=== PATIENT | female | born 1975 | race Caucasian/White ===

== ENCOUNTER 2017-06-30 16:03 | Emergency (ER) | payer OTHER ==
[2017-06-30 18:41] LABS: ABSOLUTE LYMPHOCYTES (AUTO) 2.3 10^3/uL (0.5-4.7); ABSOLUTE MONOCYTES (AUTO) 0.3 10^3/uL (0.1-1.4); ABSOLUTE NEUT (AUTO) 3.1 10^3/uL (1.7-8.2); BASOPHILS % (AUTO) 0.5 % (0-2); EOSINOPHILS % (AUTO) 0.8 % (0-6); HEMATOCRIT 40.1 % (36.0-47.0); HEMOGLOBIN 13.7 g/dL (12.0-15.5); LYMPHOCYTES % (AUTO) 38.8 % (13-45); MEAN CORPUSCULAR HEMOGLOBIN 30.4 pg (27.0-33.4); MEAN CORPUSCULAR HGB CONC 34.1 g/dL (32.0-36.0); MEAN CORPUSCULAR VOLUME 89 fl (80-97); MONOCYTES % (AUTO) 5.8 % (3-13); PLATELET COUNT 193 10^3/uL (150-450); RED CELL DISTRIBUTION WIDTH 12.7 % (11.5-14.0); SEGMENTED NEUTROPHILS % (AUTO) 54.1 % (42-78); TOTAL CELLS COUNTED % (AUTO) 100 %; WHITE BLOOD COUNT 5.8 10^3/uL (4.0-10.5)
[2017-06-30 18:56] LABS: ALANINE AMINOTRANSFERASE 37 U/L (9-52); ALBUMIN 4.5 g/dL (3.5-5.0); ALKALINE PHOSPHATASE 44 U/L (38-126); ANION GAP 10 (5-19); ASPARTATE AMINO TRANSFERASE 25 U/L (14-36); BILIRUBIN,DIRECT 0.4 mg/dL (0.0-0.4); BILIRUBIN,TOTAL 0.4 mg/dL (0.2-1.3); BLOOD UREA NITROGEN 10 mg/dL (7-20); CALCIUM 9.8 mg/dL (8.4-10.2); CARBON DIOXIDE 26 mmol/L (22-30); CHLORIDE 106 mmol/L (98-107); GLUCOSE 127 mg/dL (75-110); LIPASE 143.2 U/L (23-300); POTASSIUM 3.7 mmol/L (3.6-5.0); SODIUM 142.2 mmol/L (137-145); TOTAL PROTEIN 7.8 g/dL (6.3-8.2)
[2017-06-30 19:08] VITALS: BP 123/73
--- NOTE | 2017-06-30 19:14 | ER Document Report ---
ED General - General Chief Complaint: Abdominal Pain Stated Complaint: ABDOMINAL PAIN Time Seen by Provider: 06/30/17 18:01 Mode of Arrival: Ambulatory Information source: Patient Notes: 42-year-old female presents with complaints of left upper quadrant abdominal pain of 3 day duration. Patient notes it hurts with movement and also improves with movement. Patient denies any fevers chills nausea vomiting or diarrhea. Patient has had mono in the past, patient has no history of pancreatitis, patient does not drink, she denies any gastric reflux symptoms. Patient notes no change with eating or drinking TRAVEL OUTSIDE OF THE [place] IN LAST 30 DAYS: No - HPI Onset: Other Onset/Duration: Persistent Quality of pain: Achy Severity: Mild Pain Level: 1 Associated symptoms: Other Exacerbated by: Movement Relieved by: Other Similar symptoms previously: No Recently seen / treated by doctor: No - Related Data Allergies/Adverse Reactions: Sulfa (Sulfonamide Antibiotics) Allergy (Severe, Verified 01/17/12 08:58) Hives Past Medical History - Social History Smoking Status: Never Smoker Cigarette use (# per day): No Chew tobacco use (# tins/day): No Smoking Education Provided: No Frequency of alcohol use: None Drug Abuse: None Family History: Reviewed & Not Pertinent Patient has suicidal ideation: No Patient has homicidal ideation: No - Past Medical History Cardiac Medical History: Denies: Hx Pulmonary Embolism Pulmonary Medical History: Reports: Hx Asthma - none since age 21/sports induced Denies: Hx Sleep Apnea, Hx Tuberculosis Neurological Medical History: Reports: Hx Migraine. Denies: Hx Seizures Renal/ Medical History: Denies: Hx Peritoneal Dialysis GI Medical History: Reports: Hx Gastroesophageal Reflux Disease. Denies: Hx Hiatal Hernia, Hx Ulcer Musculoskeltal Medical History: Denies Hx Fibromyalgia Psychiatric Medical History: Reports: Hx Post Traumatic Stress Disorder - minor 2005 post head injury Denies: Hx Bipolar Disorder, Hx Depression, Hx Schizophrenia Traumatic Medical History: Reports: Hx Fractures - fingers Infectious Medical History: Denies: Hx HIV Past Surgical History: Reports: Hx Section - 2. Denies: Hx Hysterectomy, Hx Pacemaker - Immunizations Hx Diphtheria, Pertussis, Tetanus Vaccination: Yes Review of Systems - Review of Systems Notes: REVIEW OF SYSTEMS: CONSTITUTIONAL : Denies fever, chills, or sweats. Denies recent illness. EENT: Denies eye, ear, throat, or mouth pain or symptoms. Denies nasal or sinus congestion or discharge. Denies throat, tongue, or mouth swelling or difficulty swallowing. CARDIOVASCULAR: Denies chest pain. Denies palpitations or racing or irregular heart beat. Denies ankle edema. RESPIRATORY: Denies cough, cold, or chest congestion. Denies shortness of breath, difficulty breathing, or wheezing. GASTROINTESTINAL: admits to left upper quadrant pain GENITOURINARY: Denies difficulty urinating, painful urination, burning, frequency, blood in urine, or discharge. FEMALE GENITOURINARY: Denies vaginal bleeding, heavy or abnormal periods, irregular periods. Denies vaginal discharge or odor. MUSCULOSKELETAL: Denies back or neck pain or stiffness. Denies joint pain or swelling. SKIN: Denies rash, lesions or sores. HEMATOLOGIC : Denies easy bruising or bleeding. LYMPHATIC: Denies swollen, enlarged glands. NEUROLOGICAL: Denies confusion or altered mental status. Denies passing out or loss of consciousness. Denies dizziness or lightheadedness. Denies headache. Denies weakness or paralysis or loss of use of either side. Denies problems with gait or speech. Denies sensory loss, numbness, or tingling. Denies seizures. PSYCHIATRIC: Denies anxiety or stress. Denies depression, suicidal ideation, or homicidal ideation. ALL OTHER SYSTEMS REVIEWED AND NEGATIVE. PHYSICAL EXAMINATION: GENERAL: Well-appearing, well-nourished and in no acute distress. HEAD: Atraumatic, normocephalic. EYES: Pupils equal round and reactive to light, extraocular movements intact, conjunctiva are normal. ENT: Nares patent, oropharynx clear without exudates. Moist mucous membranes. NECK: Normal range of motion, supple without lymphadenopathy LUNGS: Breath sounds clear to auscultation bilaterally and equal. No wheezes rales or rhonchi. HEART: Regular rate and rhythm without murmurs ABDOMEN: Soft, minimal tenderness in the left upper wuadrant, no tenderness otherwise, . Female : deferred Musculoskeletal: Normal range of motion, no pitting or edema. No cyanosis. NEUROLOGICAL: Cranial nerves grossly intact. Normal speech, normal gait. Normal sensory, motor exams PSYCH: Normal mood, normal affect. SKIN: Warm, Dry, normal turgor, no rashes or lesions noted. Dictation was performed using [employer] recognition software Physical Exam - Vital signs Vitals: Temp Pulse Resp BP Pulse Ox 98.4 F 79 20 123/73 98 06/30/17 19:07 06/30/17 19:07 06/30/17 19:07 06/30/17 19:07 06/30/17 19:07 Course - Re-evaluation Re-evalutation: 06/30/17 19:52 Patient has no urinary complaints denies any fevers or chills has no nausea or vomiting and is very benign on exam, lab work noted no significant abnormality, I believe this patient's symptoms are secondary to musculoskeletal in the otherwise looks well. I will discharge home with extremely close follow-up we had long discussion regarding abdominal pain patient follow-up and return precautions After performing a Medical Screening Examination, I estimate there is LOW risk for ACUTE APPENDICITIS, BOWEL OBSTRUCTION, ACUTE CHOLECYSTITIS, PERFORATED DIVERTICULITIS, INCARCERATED HERNIA, PANCREATITIS, PELVIC INFLAMMATORY DISEASE, PERFORATED ULCER, ECTOPIC , or TUBO-OVARIAN ABSCESS, thus I consider the discharge disposition reasonable. Also, there is no evidence or peritonitis , sepsis, or toxicity. I have reevaluated this patient multiple times and no significant life threatening changes are noted. The patient and I have discussed the diagnosis and risks, and we agree with discharging home with close follow-up with the understanding that symptoms and presentations can change. We also discussed returning to the Emergency Department immediately if new or worsening symptoms occur. We have discussed the symptoms which are most concerning (e.g., bloody stool, fever, changing or worsening pain, vomiting) that necessitate immediate return. - Vital Signs Vital signs: Temp Pulse Resp BP Pulse Ox 98.4 F 79 20 123/73 98 06/30/17 19:07 06/30/17 19:07 06/30/17 19:07 06/30/17 19:07 06/30/17 19:07 - Laboratory Result Diagrams: 06/30/17 18:25 06/30/17 18:25 Laboratory results interpreted by me: 06/30/17 18:25 Glucose 127 H Discharge - Discharge Clinical Impression: Abdominal wall pain Condition: Stable Disposition: HOME, SELF-CARE Instructions: Abdominal Pain ([facility]) Additional Instructions: Follow up with your physician tomorrow for further care or return to the ED IMMEDIATELY if symptoms worsen or new concerns occur. If you cannot afford to follow up with your primary care physician a list of low cost clinics have been provided at the end of your discharge papers as well. Prescriptions: Hydrocodone/Acetaminophen [[place] 5-325 mg Tablet] 1 tab PO Q6 #10 tablet
== END 2017-06-30 19:30 | disposition home or self-care (01) ==
LOC: ER 16:03
DX: R10.12 Left upper quadrant pain (principal); Z88.2 Allergy status to sulfonamides
CPT/HCPCS: 36415; 80053; 83690; 84703; 85025; 99284

== ENCOUNTER 2017-07-03 08:44 | Emergency (ER) | payer OTHER ==
[2017-07-03] MEDS ORDERED: VALACYCLOVIR HCL 500 MG TABLET PO ONE (09:41)
[2017-07-03] MEDS ORDERED: HYDROCODONE/ACETAMINOPHEN 7.5-325 MG TABLET PO ONE (09:41)
[2017-07-03] MEDS ORDERED: ONDANSETRON 4 MG TAB.RAPDIS PO ONE (09:41)
--- NOTE | 2017-07-03 09:44 | ER Document Report ---
HPI - HPI Patient complains to provider of: Left flank pain Onset: Other - 5 days Onset/Duration: Worse Quality of pain: Burning, Sharp Pain Level: 5 Context: Patient presents complaining of left flank pain that radiates around her abdomen for the past 5 days. Patient states she was here recently for this complaint and had labs performed. Patient does report some nausea but denies any vomiting or diarrhea. Patient denies any fever, urinary symptoms, vaginal bleeding or discharge. Patient states pain is worse with movement. Patient noticed a rash that starts to develop yesterday. Associated Symptoms: Other - Left flank pain. denies: Chest pain, Fever Exacerbated by: Movement Relieved by: Denies Similar symptoms previously: No Recently seen / treated by doctor: Yes - ROS ROS below otherwise negative: Yes Systems Reviewed and Negative: Yes All other systems reviewed and negative - CONSTITUTIONAL Constitutional: DENIES: Fever, Chills - RESPIRATORY Respiratory: DENIES: Coughing - GASTROINTESTINAL Gastrointestinal: REPORTS: Abdominal Pain, Nausea. DENIES: Patient vomiting - URINARY Urinary: DENIES: Dysuria, Urgency, Frequency - MUSCULOSKELETAL Musculoskeletal: REPORTS: Back Pain. DENIES: Extremity pain - DERM Skin Color: Normal, [place] Skin Problems: Rash Past Medical History - General Information source: Patient - Social History Smoking Status: Never Smoker Chew tobacco use (# tins/day): No Frequency of alcohol use: None Drug Abuse: None Occupation: interior design principal Lives with: Spouse/Significant other Family History: Reviewed & Not Pertinent Patient has suicidal ideation: No Patient has homicidal ideation: No - Past Medical History Cardiac Medical History: Denies: Hx Pulmonary Embolism Pulmonary Medical History: Reports: Hx Asthma - none since age 21/sports induced Denies: Hx Sleep Apnea, Hx Tuberculosis Neurological Medical History: Reports: Hx Migraine. Denies: Hx Seizures Renal/ Medical History: Denies: Hx Peritoneal Dialysis GI Medical History: Reports: Hx Gastroesophageal Reflux Disease. Denies: Hx Hiatal Hernia, Hx Ulcer Musculoskeltal Medical History: Denies Hx Fibromyalgia Psychiatric Medical History: Reports: Hx Post Traumatic Stress Disorder - minor 2005 post head injury Denies: Hx Bipolar Disorder, Hx Depression, Hx Schizophrenia Traumatic Medical History: Reports: Hx Fractures - fingers Infectious Medical History: Denies: Hx HIV Past Surgical History: Reports: Hx Section - 2. Denies: Hx Hysterectomy, Hx Pacemaker - Immunizations Hx Diphtheria, Pertussis, Tetanus Vaccination: Yes Vertical Provider Document - CONSTITUTIONAL Agree With Documented VS: Yes Exam Limitations: No Limitations General Appearance: WD/WN, No Apparent Distress - INFECTION CONTROL TRAVEL OUTSIDE OF THE [place] IN LAST 30 DAYS: No - HEENT HEENT: Atraumatic, Normocephalic - NECK Neck: Normal Inspection, Supple - RESPIRATORY Respiratory: Breath Sounds Normal, No Respiratory Distress O2 Sat by Pulse Oximetry: 97 - CARDIOVASCULAR Cardiovascular: Regular Rate, Regular Rhythm, No Murmur - GI/ABDOMEN Gastrointestinal: Abdomen Soft, Abdomen Tender - Left side of abdomen tender with overlying vesicular rash - BACK Back: Abnormal Inspection - Vesicular erythematous rash the left flank area that wraps around to left side of abdomen - MUSCULOSKELETAL/EXTREMETIES Musculoskeletal/Extremeties: DANY ERICKSON - NEURO Level of Consciousness: Awake, Alert, Appropriate Motor/Sensory: No Motor Deficit - DERM Integumentary: Warm, Dry, Rash - Erythematous vesicular painful rash to left side of trunk Course - Re-evaluation Re-evalutation: 07/03/17 Patient presents with vesicular rash consistent with herpes zoster. Patient with explanation for her pain symptoms, patient agrees with plan to defer any additional diagnostic workup at this time. Will treat her pain symptoms and add antiviral medication. - Vital Signs Vital signs: Temp Pulse Resp BP Pulse Ox 98.1 F 75 20 118/64 97 07/03/17 08:46 07/03/17 08:46 07/03/17 08:46 07/03/17 08:46 07/03/17 08:46 - Laboratory Laboratory results interpreted by me: 07/03/17 18:24 Reviewed results from previous ER visit Discharge - Discharge Clinical Impression: Shingles Qualifiers: Herpes zoster complications: without complications Qualified Code(s): B02.9 - Zoster without complications Condition: Stable Disposition: HOME, SELF-CARE Instructions: Antinausea Medication ([facility]), Oral Narcotic Medication ([facility]), Shingles ([facility]) Additional Instructions: Return immediately for any new or worsening symptoms Followup with your primary care provider, call tomorrow to make a followup appointment Prescriptions: Hydrocodone/Acetaminophen [[place] 7.5-325 mg Tablet] 1 tab PO Q6 PRN #20 tablet PRN Reason: Lidocaine [Lidoderm 5% (700 mg) Transdermal Patch] 1 patch TP DAILY #15 adh..patch Ondansetron HCl [Zofran 4 mg Tablet] 1 - 2 tab PO Q6 PRN #15 tablet PRN Reason: Valacyclovir HCl [Valacyclovir] 1,000 mg PO TID #21 tablet Forms: Return to Work Referrals: SUZIE JEFFRIES MD [Primary Care Provider] - Follow up as needed
[2017-07-03] MEDS ORDERED: LIDOCAINE 5% (700 MG) TRANSDERMAL ADH..PATCH TP ONE (09:48)
[2017-07-03 10:14] VITALS: BP 120/70
== END 2017-07-03 10:37 | disposition home or self-care (01) ==
LOC: ER 08:44
DX: B02.9 Zoster without complications (principal); R10.9 Unspecified abdominal pain; R11.0 Nausea; R21 Rash and other nonspecific skin eruption
CPT/HCPCS: 99283; S0119

== ENCOUNTER 2017-08-12 01:00 | Emergency (ER) | payer OTHER ==
[2017-08-12] MEDS ORDERED: ONDANSETRON HCL INJ/PF 4 MG/2 ML SDV IV ONE (01:54)
[2017-08-12] MEDS ORDERED: KETOROLAC TROMETHAMINE INJ/PF 30 MG/1 ML SDV IV ONE (01:54)
[2017-08-12] MEDS ORDERED: NORMAL SALINE 1000 ML 1,000 ML IV ONE (01:56)
--- NOTE | 2017-08-12 02:02 | ER Document Report ---
ED General - General Chief Complaint: Abdominal Pain Stated Complaint: ABDOMINAL PAIN Time Seen by Provider: 08/12/17 01:08 Notes: Patient is a 42-year-old female with a past medical history of migraine headaches who presents with acute onset of right upper quadrant abdominal pain with associated nausea and vomiting that started approximately 1 hour prior to arrival. Patient states that she ate ice cream approximately 2 hours before going to bed and then woke up abruptly with this pain. She describes it as a severe, stabbing, constant pain to her upper right abdomen. She notes that she had multiple episodes of vomiting prior to arrival with associated nausea. Nothing improves or worsens her pain. She denies any history of similar symptoms in the past. She denies any diarrhea or constipation. No chest pain or shortness of breath. She notes that her pain has somewhat improved since onset although it is not completely resolved. TRAVEL OUTSIDE OF THE [place] IN LAST 30 DAYS: No - Related Data Allergies/Adverse Reactions: Sulfa (Sulfonamide Antibiotics) Allergy (Severe, Verified 07/03/17 09:27) Hives Past Medical History - General Information source: Patient - Social History Smoking Status: Never Smoker Frequency of alcohol use: None Drug Abuse: None Lives with: Spouse/Significant other Family History: Reviewed & Not Pertinent - Past Medical History Cardiac Medical History: Denies: Hx Pulmonary Embolism Pulmonary Medical History: Reports: Hx Asthma - none since age 21/sports induced Denies: Hx Sleep Apnea, Hx Tuberculosis Neurological Medical History: Reports: Hx Migraine. Denies: Hx Seizures Renal/ Medical History: Denies: Hx Peritoneal Dialysis GI Medical History: Reports: Hx Gastroesophageal Reflux Disease. Denies: Hx Hiatal Hernia, Hx Ulcer Musculoskeltal Medical History: Denies Hx Fibromyalgia Psychiatric Medical History: Reports: Hx Post Traumatic Stress Disorder - minor 2005 post head injury Denies: Hx Bipolar Disorder, Hx Depression, Hx Schizophrenia Traumatic Medical History: Reports: Hx Fractures - fingers Infectious Medical History: Denies: Hx HIV Past Surgical History: Reports: Hx Section - 2. Denies: Hx Hysterectomy, Hx Pacemaker - Immunizations Hx Diphtheria, Pertussis, Tetanus Vaccination: Yes Review of Systems - Review of Systems Notes: Constitutional: Negative for fever. HENT: Negative for sore throat. Eyes: Negative for visual changes. Cardiovascular: Negative for chest pain. Respiratory: Negative for shortness of breath. Gastrointestinal: Positive for abdominal pain and vomiting Genitourinary: Negative for dysuria. Musculoskeletal: Negative for back pain. Skin: Negative for rash. Neurological: Negative for headaches, weakness or numbness. 10 point ROS negative except as marked above and in HPI. Physical Exam - Vital signs Vitals: Temp Pulse Resp BP Pulse Ox 98.1 F 69 18 111/71 98 08/12/17 01:04 08/12/17 01:04 08/12/17 01:04 08/12/17 01:04 08/12/17 01:04 Interpretation: Normal Notes: PHYSICAL EXAMINATION: GENERAL: Well-appearing, well-nourished and in no acute distress. HEAD: Atraumatic, normocephalic. EYES: Pupils equal round and reactive to light, extraocular movements intact, sclera anicteric, conjunctiva are normal. ENT: nares patent, oropharynx clear without exudates. Moist mucous membranes. NECK: Normal range of motion, supple without lymphadenopathy LUNGS: Breath sounds clear to auscultation bilaterally and equal. No wheezes rales or rhonchi. HEART: Regular rate and rhythm without murmurs ABDOMEN: Soft, mild tenderness to the right upper quadrant without a Quiñones sign , no other localized areas of tenderness, normoactive bowel sounds. No guarding , no rebound. No masses appreciated. EXTREMITIES: Normal range of motion, no pitting or edema. No cyanosis. NEUROLOGICAL: No focal neurological deficits. Moves all extremities spontaneously and on command. PSYCH: Normal mood, normal affect. SKIN: Warm, Dry, normal turgor, no rashes or lesions noted. Course - Re-evaluation Re-evalutation: 08/12/17 01:57 Patient presents clinical history and exam most consistent with symptomatic cholelithiasis. Vitals at time of arrival and on multiple reassessments remain non-concerning. Laboratories do not demonstrate a significant leukocytosis, LFT derangements, elevated bilirubin, alkaline phosphatase, or an elevated lipase. A right upper quadrant ultrasound does not demonstrate evidence of acute cholecystitis. Patient is able to tolerate oral intake. At this time will discharge with return precautions and follow-up recommendations. Verbal discharge instructions given a the bedside and opportunity for questions given. Medication warnings reviewed. Patient is in agreement with this plan and has verbalized understanding of return precautions and the need for primary care follow-up in the next 24-72 hours. - Vital Signs Vital signs: Temp Pulse Resp BP Pulse Ox 98.1 F 69 18 111/71 98 08/12/17 01:04 08/12/17 01:04 08/12/17 01:04 08/12/17 01:04 08/12/17 01:04 - Laboratory Result Diagrams: 08/12/17 02:09 08/12/17 02:58 Laboratory results interpreted by me: 08/12/17 08/12/17 02:09 02:58 Sodium 145.6 H Chloride 114 H Total Protein 6.2 L Urine Urobilinogen 2.0 H Discharge - Discharge Clinical Impression: Symptomatic cholelithiasis Nausea and vomiting Qualifiers: Vomiting type: unspecified Vomiting Intractability: non-intractable Qualified Code(s): R11.2 - Nausea with vomiting, unspecified Condition: Good Disposition: HOME, SELF-CARE Additional Instructions: You have gallstones that are causing your symptoms. Be sure to avoid fat containing foods until you follow-up with a surgeon to have the gallbladder removed as eating these foods will trigger your pain. Please return to the emergency department if you develop a fever greater than 100.4F, persistent vomiting, worsening of your pain, or any other symptoms that are worrisome to you. Referrals: SUZIE JEFFRIES MD [Primary Care Provider] - Follow up as needed KARLA RAUSCH MD [ACTIVE STAFF] - 08/14/17
[2017-08-12 02:22] LABS: ABSOLUTE BASOPHILS # (AUTO) 0.1 10^3/uL (0.0-0.2); ABSOLUTE EOSINOPHILS # (AUTO) 0.1 10^3/uL (0.0-0.6); ABSOLUTE MONOCYTES (AUTO) 0.6 10^3/uL (0.1-1.4); ABSOLUTE NEUT (AUTO) 3.4 10^3/uL (1.7-8.2); BASOPHILS % (AUTO) 0.9 % (0-2); EOSINOPHILS % (AUTO) 2.4 % (0-6); HEMATOCRIT 37.3 % (36.0-47.0); HEMOGLOBIN 12.9 g/dL (12.0-15.5); LYMPHOCYTES % (AUTO) 32.1 % (13-45); MEAN CORPUSCULAR HEMOGLOBIN 30.9 pg (27.0-33.4); MEAN CORPUSCULAR HGB CONC 34.5 g/dL (32.0-36.0); MEAN CORPUSCULAR VOLUME 89 fl (80-97); MONOCYTES % (AUTO) 8.9 % (3-13); PLATELET COUNT 207 10^3/uL (150-450); RED BLOOD COUNT 4.18 10^6/uL (3.72-5.28); RED CELL DISTRIBUTION WIDTH 13.2 % (11.5-14.0); SEGMENTED NEUTROPHILS % (AUTO) 55.7 % (42-78); TOTAL CELLS COUNTED % (AUTO) 100 %; WHITE BLOOD COUNT 6.2 10^3/uL (4.0-10.5)
[2017-08-12 02:24] LABS: APPEARANCE,URINE SLIGHTLY-CLOUDY; BILIRUBIN,URINE NEGATIVE (NEGATIVE); COLOR,URINE YELLOW; GLUCOSE, URINE NEGATIVE (NEGATIVE); KETONES,URINE NEGATIVE (NEGATIVE); LEUKOCYTE ESTERASE,URINE NEGATIVE (NEGATIVE); NITRITE,URINE NEGATIVE (NEGATIVE); PROTEIN,URINE NEGATIVE (NEGATIVE); URINE SPECIFIC GRAVITY 1.018
--- NOTE | 2017-08-12 03:00 | RADIOLOGY REPORT (SQ) ---
EXAM DESCRIPTION: U/S ABDOMEN LIMITED W/O DOP CLINICAL HISTORY: ruq pain, vomiting COMPARISON: None. TECHNIQUE: Real-time sonographic images of the right upper abdomen were obtained using a curved multihertz transducer. FINDINGS: Pancreas: The visualized portions of the pancreas are unremarkable. Vascular: The visualized portions of the aorta and IVC are unremarkable. Liver: The liver has normal contour and echogenicity. Hepatopedal flow in the portal vein. The common bile duct measures 0.3 cm. Gallbladder: Normal gallbladder wall thickness. Mobile echogenic structures within the gallbladder lumen compatible with gallstones. No pericholecystic fluid identified. Right Kidney: The right kidney measures 11.6 cm in length. No hydronephrosis, solid renal mass, or shadowing calculi. IMPRESSION: 1. Cholelithiasis without other sonographic evidence of acute cholecystitis.
[2017-08-12 03:13] LABS: ALANINE AMINOTRANSFERASE 37 U/L (9-52); ALBUMIN 3.5 g/dL (3.5-5.0); ALKALINE PHOSPHATASE 44 U/L (38-126); ANION GAP 8 (5-19); ASPARTATE AMINO TRANSFERASE 24 U/L (14-36); BILIRUBIN,DIRECT 0.3 mg/dL (0.0-0.4); BILIRUBIN,TOTAL 0.3 mg/dL (0.2-1.3); BLOOD UREA NITROGEN 13 mg/dL (7-20); CALCIUM 8.9 mg/dL (8.4-10.2); CARBON DIOXIDE 24 mmol/L (22-30); CHLORIDE 114 mmol/L (98-107); GLUCOSE 97 mg/dL (75-110); LIPASE 201.1 U/L (23-300); POTASSIUM 4.2 mmol/L (3.6-5.0); SODIUM 145.6 mmol/L (137-145); TOTAL PROTEIN 6.2 g/dL (6.3-8.2)
[2017-08-12 03:50] VITALS: BP 106/61
== END 2017-08-12 03:50 | disposition home or self-care (01) ==
LOC: ER 01:00
DX: K80.20 Calculus of gallbladder without cholecystitis without obstruction (principal); R11.2 Nausea with vomiting, unspecified; R10.11 Right upper quadrant pain; D72.829 Elevated white blood cell count, unspecified; J45.909 Unspecified asthma, uncomplicated; Z88.2 Allergy status to sulfonamides; Z87.19 Personal history of other diseases of the digestive system
CPT/HCPCS: 99284; 96361; 96374; 96375; 36415; 83690; 85025; 81025; 80053; 81001; 76705; J1885; J2405; J7030

== ENCOUNTER 2017-09-06 08:34 | Day surgery (SDC) | payer OTHER ==
[2017-08-30 09:50] LABS: HEMATOCRIT 42.8 % (36.0-47.0); HEMOGLOBIN 14.5 g/dL (12.0-15.5); MEAN CORPUSCULAR HEMOGLOBIN 30.3 pg (27.0-33.4); MEAN CORPUSCULAR HGB CONC 33.8 g/dL (32.0-36.0); MEAN CORPUSCULAR VOLUME 90 fl (80-97); PLATELET COUNT 175 10^3/uL (150-450); RED BLOOD COUNT 4.77 10^6/uL (3.72-5.28); RED CELL DISTRIBUTION WIDTH 12.9 % (11.5-14.0); WHITE BLOOD COUNT 5.3 10^3/uL (4.0-10.5)
[2017-08-30 10:17] LABS: ALANINE AMINOTRANSFERASE 28 U/L (9-52); ALBUMIN 4.7 g/dL (3.5-5.0); ALKALINE PHOSPHATASE 44 U/L (38-126); AMYLASE 72 U/L (30-110); ANION GAP 13 (5-19); ASPARTATE AMINO TRANSFERASE 21 U/L (14-36); BILIRUBIN,DIRECT 0.1 mg/dL (0.0-0.4); BILIRUBIN,TOTAL 0.4 mg/dL (0.2-1.3); BLOOD UREA NITROGEN 12 mg/dL (7-20); CALCIUM 9.8 mg/dL (8.4-10.2); CARBON DIOXIDE 27 mmol/L (22-30); CHLORIDE 105 mmol/L (98-107); GLUCOSE 90 mg/dL (75-110); POTASSIUM 4.5 mmol/L (3.6-5.0); SODIUM 144.9 mmol/L (137-145); TOTAL PROTEIN 7.8 g/dL (6.3-8.2)
[2017-09-06] MEDS: BUPIVACAINE HCL 0.25 % INJ/PF (2.5 MG/1 ML) 30 ML VIAL ONE ×2 (08:03→09:37)
[~2017-09-06 08:34] MED LIST: ACETAMINOPHEN 100 ML IV ONE; ACETAMINOPHEN 325 MG TABLET PO PRN; CEFAZOLIN 1 GM/D5W RTU 1 GM/50 ML RTUPB IV PRN; FENTANYL CITRATE INJ/PF 250 MCG/5 ML AMPULE ONE; LACTATED RINGERS 1000 ML IV PRN; LIDOCAINE 0.5% INJ-PF (5 MG/ML) 50 ML SDV SUBCUT PRN; MIDAZOLAM 2 MG/2 ML INJ ONE; PROPOFOL INJ 200 MG/20 ML VIAL IV ONE
[2017-09-06] MEDS ORDERED: MEPERIDINE HCL/PF INJ 25 MG/1 ML DISP.SYRIN IV PRN (09:51)
[2017-09-06] MEDS ORDERED: FENTANYL CITRATE INJ/PF 100 MCG/2 ML AMPUL IV PRN ×3 (09:51)
[2017-09-06] MEDS ORDERED: MORPHINE SULFATE 10 MG/ML INJ IV PRN (09:51)
[2017-09-06] MEDS ORDERED: THROMBIN (BOVINE) 5000 UNIT EPITAXIS KIT ONE (10:24)
--- NOTE | 2017-09-06 10:57 | Discharge Summary ---
Discharge Summary (SDC) - Discharge Final Diagnosis: cholelithiasis with right lobe liver mass Date of Surgery: 09/06/17 Discharge Date: 09/06/17 Condition: Stable Treatment or Instructions: [facility] [address] [place] [id number] Discharge Instructions: Laparoscopic Surgery 1. General Information: a. DO NOT DRIVE a car or operate dangerous machinery for 3-4 days or while taking narcotic pain pills. b. DO NOT consume alcohol, tranquilizers, sleeping medications or any non- prescribed medications for 24 hours unless approved by your doctor or as long as taking narcotic prescription medications. c. DO NOT make important decisions or sign any important papers for the first 24 hours after surgery. d. When discharged home the same day of surgery have a responsible person with you for the first night. 2. Activity Restrictions: 2 weeks a. NO heavy lifting, straining abdominal muscles, bending over a lot, yard work, house work, or sports for [address] NOT drive for 3-4 days. c. It is fine to go for walks, up and down steps, ride in a car. d. Elevate your head when sleeping/resting. 3. Treatment: a. You may shower 48 hours after surgery, no baths or swimming for 2 weeks. Remove band-aids or dressings before shower but leave paper strips (steri-strips ) on the skin to fall off on their own. If still on at postoperative visit they will be removed then. b. Drainage of fluid or blood is not unusual from an incision. If occurs, you can clean with peroxide and cotton ball daily and cover with dry gauze until the wound seals. c. If a lot of bleeding occurs, you can hold pressure with a gauze or cloth over the site for 10 minutes and it will usually stop. If bleeding continues you will need to call for possible evaluation in office or emergency room. d. Empty drain bulb every 24 hours. Record measurement prior to emptying. You may remove drain dressing prior to shower and apply a new clean dressing afterwards. 4. Medications: a. __Toradol_ may be taken for pain as needed, one tablet every 6 hours. b. You should resume all normal medications unless a change is specified by your doctors. 5. Diet: Begin with clear liquids and may progress to your normal diet if not nauseated. No high fat, high protein foods the day of surgery. 6. The following may occur after laparoscopic surgery: a. Shoulder or upper back ache from retained gas that should resolve in 1-2 days b. Soreness and bruising at incision sites will resolve with time. c. Scrotal swelling (labia in women) and bruising is often seen after hernia surgery. d. Sore throat e. Fatigue may last days to weeks. f. Difficulty urinating may occur and may need to come into emergency room for urinary catheter placement. 7. Notify Physician If: a. Worsening or pain not improved with pain medication b. Persistent nausea and vomiting c. Fever above 101 d. Persistent bleeding or swelling at operative site e. Unable to urinate and uncomfortable bladder 6-8 hours after surgery 8..Follow Up Care: a. Schedule a follow up appointment with your doctor for 2 weeks. In the event of any postoperative problems or questions or you may call the office during business hours or the [facility]-Call physician evenings and weekends [facility] I understand the instructions for my postoperative care as described above and a copy has been given to me. Patient/Significant Other Witness Date Prescriptions: Ketorolac Tromethamine [Toradol 10 mg Tablet] 10 mg PO Q6HP PRN #20 tablet PRN Reason: Referrals: SUZIE JEFFRIES MD [Primary Care Provider] - Discharge Diet: Other (Comments) - avoid fatty/greasy foods Discharge Activity: No Lifting Over 10 Pounds, No tub bath, Walk Frequently Report the Following to Your Physician Immediately: Nausea, Vomiting, Fever over 101 Degrees, Unusual Bleeding, Redness, Drainage-Foul Smelling
[2017-09-06] MEDS ORDERED: OXYCODONE-ACETAMINOPHEN 5-325 MG TABLET PO PRN (10:58)
[2017-09-06] MEDS ORDERED: FENTANYL CITRATE INJ/PF 100 MCG/2 ML AMPUL ONE (11:06)
[2017-09-06] MEDS ORDERED: MORPHINE SULFATE 10 MG/ML INJ ONE (11:08)
--- NOTE | 2017-09-06 11:15 | Operative Report ---
Operative Report DATE OF SURGERY: 09/06/17 PREOPERATIVE DIAGNOSIS: 1. Symptomatic cholelithiasis with cholecystitis. 2. History of oral contraceptive use POSTOPERATIVE DIAGNOSIS: Same with right hepatic lobe mass OPERATION: 1. Laparoscopic cholecystectomy. 2. Core biopsy right hepatic lobe, segment 6, mass. 3. Drainage of perihepatic space SURGEON: KARLA RAUSCH 1ST FUND DIRECTOR: TERRIE SOTO ANESTHESIA: GA TISSUE REMOVED OR ALTERED: 1. Gallbladder with contents. 2. core of right hepatic mass COMPLICATIONS: None ESTIMATED BLOOD LOSS: 25 cc INTRAOPERATIVE FINDINGS: See below PROCEDURE: After obtaining informed consent, the patient was taken to the operating room. General Anesthesia was induced; the arms were extended, and the abdomen was exposed, and prepped and draped in a sterile fashion. Instrumentation was set up for laparoscopic cholecystectomy. Surgical plan and surgical timeout were conducted. A vertical incision was made above the umbilicus, and a verres needle was inserted uneventfully into the peritoneal cavity. Pneumoperitoneum was established. The verres needle was removed and a 5 mm trocar was inserted and a 5 mm flexible laparoscope was inserted. Visualization of the peritoneal cavity confirmed safe uneventful entry. Under direct visualization 3 additional 5 mm ports were established, one in the subxiphoid position and second in the subcostal position. Visualization of the hepatobiliary anatomy revealed no anatomic variations. However the inferior lateral aspect of the right lobe, consistent with segment 6 coming off of the inferior surface was approximately 4 cm mass, vascularity with a nodular surface. The remainder of the liver appeared completely normal. Photographs were taken, and images sent to Dr. Oscar Odom, hepatobiliary specialist in oncology at [facility]. Suggested core biopsy. We elected to proceed with gallbladder removal, then discuss the intraoperative findings with patient's significant other. A grasper was placed on the fundus of the gallbladder and the gallbladder is elevated over the right surface of the liver; a second grasper was used to grasp the infundibulum of the gallbladder. The neck of the gallbladder and junction with the cystic duct was dissected out. The Cystic artery was in its usual location medial and cephalad to the cystic duct. The cystic artery was surrounded with a right angle clamp, clipped twice proximally and divided with laparoscopic scissors. We now opened the triangle of Calot by dividing the peritoneal reflection on both the medial and lateral sides of the cystic duct infundibular junction. The critical view was obtained. We now milked the cystic duct of any possible stones, clipped the cystic duct approximately 2 times once distally and divided with scissors. The gallbladder was now removed from the undersurface of the liver using hook cautery dissection. Graspers were repositioned and the gallbladder was removed uneventfully from the abdominal cavity through the super umbilical port site incision. The specimen was examined, then passed off to pathology for permanent analysis. We returned to the peritoneal cavity check for bleeding, and evidence of bile leak, and there was none. We Confirmed satisfactory placement of clips on cystic duct and cystic artery were secured . We now turned our attention to the right lobe of the liver mass. I broke scrub and discussed the findings with the patient's significant other. I showed him pictures intraoperatively of the incidental mass, and the recommendation by the hepatobiliary specialist to proceed with biopsy. He agreed. We elected to perform a core biopsy using 14-gauge mammotome hand-held spring- loaded device. We took 1 of the 5 mm trochars, truncated it, and approached the biopsy through the shortened trocar. The liver right lobe elevated using a grasper, we introduced the spring-loaded handheld mammotome through the port, and obtained 2 cores, 1 with substantial tissue and the other mostly blood. Specimens were sent for permanent analysis in formalin, as well as fresh saline for immediate interpretation. Bleeding was minimal but persistent. Therefore we achieved hemostasis with 5 cc of thrombin activated, and several pieces of Surgicel. A drain was placed through 1 of the port sites, a 15 [place] large trimmed to the appropriate configuration. The drain was secured to the skin with 2-0 Prolene suture. Reinspection of the bleeding site revealed satisfactory hemostasis. The drain was in good position. We felt the operation was complete. Ports were removed under direct visualization and wounds closed with 3-0 Vicryl benzoin and Steri- Strips. The patient was extubated, and taken to the recovery room in stable condition. Immediately postoperatively we got a call from Dr. Panda Sharma, pathologist, who stated the biopsy was consistent with a benign hepatic lesion; This was discussed with the patient's significant other at the conclusion of the operation. The physician field administrative assistant, Ms. Duran, provided assistance during this case by: Assisting and port insertion, retracting tissue, instillation of local anesthesia and closure of skin incisions.
[2017-09-06] MEDS ORDERED: ONDANSETRON HCL INJ/PF 4 MG/2 ML SDV ONE (12:42)
[2017-09-06] MEDS ORDERED: NEOSTIGMINE METHYLSULFATE 10 MG/10 ML VIAL ONE (12:42)
[2017-09-06] MEDS ORDERED: LIDOCAINE 2% INJ-PF (20 MG/ML) 2 ML AMPUL ONE (12:42)
[2017-09-06] MEDS ORDERED: DEXAMETHASONE SOD PHOSPHATE INJ 4 MG/1 ML VIAL ONE (12:42)
[2017-09-06] MEDS ORDERED: VECURONIUM BROMIDE INJ 10 MG VIAL IV ONE (12:42)
[2017-09-06] MEDS ORDERED: GLYCOPYRROLATE INJ 0.4 MG/2 ML VIAL ONE (12:42)
[2017-09-06] MEDS ORDERED: SUCCINYLCHOLINE CHLORIDE INJ 200 MG/10 ML VIAL ONE (12:42)
[2017-09-06 13:55] VITALS: BP 126/82
== END 2017-09-06 13:45 | disposition home or self-care (01) ==
LOC: OROUT 08:34
PROVIDERS: ATTEND Surgery
PROC: 0FB14ZX Excision of Right Lobe Liver, Percutaneous Endoscopic Approach, Diagnostic (ICD-10-PCS; 2017-09-06)
PROC: 0FT44ZZ Resection of Gallbladder, Percutaneous Endoscopic Approach (ICD-10-PCS; principal; 2017-09-06 07:30)
DX: K80.10 Calculus of gallbladder with chronic cholecystitis without obstruction (principal); K75.81 Nonalcoholic steatohepatitis (NASH); K74.0 Hepatic fibrosis; G43.909 Migraine, unspecified, not intractable, without status migrainosus; Z87.891 Personal history of nicotine dependence; Z79.899 Other long term (current) drug therapy; Z88.8 Allergy status to other drugs, medicaments and biological substances
CPT/HCPCS: 36415; 82150; 85027; 81025; 80076; 80048; 88304 ×2; 88305 ×2; 88313 ×2; 88331; 47562; 47379; J2250; J0690; J1100; J3010 ×2; J3490 ×3; J2270; J0330; J2405; J2704; J0131; 790

== ENCOUNTER → 2017-09-15 | Outpatient (CLI) | payer OTHER ==
[2017-09-15 10:22] LABS: ALANINE AMINOTRANSFERASE 38 U/L (9-52); ALBUMIN 4.4 g/dL (3.5-5.0); ALKALINE PHOSPHATASE 57 U/L (38-126); ASPARTATE AMINO TRANSFERASE 20 U/L (14-36); BILIRUBIN,DIRECT 0.3 mg/dL (0.0-0.4); BILIRUBIN,TOTAL 0.3 mg/dL (0.2-1.3); TOTAL PROTEIN 7.3 g/dL (6.3-8.2)
[2017-09-16 04:38] LABS: HEPATITIS A AB IGM Negative (Negative); HEPATITIS B CORE AB IGM Negative (Negative); HEPATITS B SURFACE ANTIGEN Negative (Negative)
[2017-09-16 11:48] LABS: HEPATITIS C VIRUS ANTIBODY <0.1 s/co ratio (0.0-0.9)
== END ==
LOC: LAB 09:50
PROVIDERS: ATTEND Surgery
DX: R16.0 Hepatomegaly, not elsewhere classified (principal)
CPT/HCPCS: 36415; 80074; 80076; 82105

== ENCOUNTER 2020-05-27 16:20 | Emergency (ER) | payer OTHER ==
[2020-05-27 17:35] VITALS: BP 140/85
[2020-05-27] MEDS ORDERED: METOCLOPRAMIDE HCL INJ/PF 10 MG/2 ML SDV IM ONE (19:29)
[2020-05-27] MEDS ORDERED: KETOROLAC TROMETHAMINE 60 MG/2 ML SDV IM ONE (19:29)
--- NOTE | 2020-05-27 19:56 | ER Document Report ---
HPI - HPI Patient complains to provider of: Headache Time Seen by Provider: 05/27/20 19:25 Pain Level: 2 Context: 45-year-old female past medical history significant for migraines complains of daily migraines for the past 3 days. States she had her monthly injection on Monday. Has been taking Fioricet every day but states she cannot break the cycle. States it feels like a tight band around the top of her head. Denies any nausea, vomiting. No head trauma head injury. No sudden thunderclap. Denies worst headache of her life. States is similar to her previous migraine she just cannot seem to get it to fully go away. Denies any chance of . Associated Symptoms: None Exacerbated by: Denies Relieved by: Denies Similar symptoms previously: Yes - History of migraines Recently seen / treated by doctor: No - ROS Systems Reviewed and Negative: Yes All other systems reviewed and negative - CONSTITUTIONAL Constitutional: DENIES: Fever - EENT EENT: DENIES: Sore Throat - NEURO Neurology: REPORTS: Headache. DENIES: Weakness, Vision blurred, Dizzinesss / Vertigo - REPRODUCTIVE LMP: 2 wks ago Reproductive: DENIES: : - DERM Skin Color: Normal, [place] Skin Problems: None Past Medical History - General Information source: Patient - Social History Smoking Status: Never Smoker Frequency of alcohol use: None Drug Abuse: None Family History: Reviewed & Not Pertinent Patient has homicidal ideation: No - Past Medical History Cardiac Medical History: Denies: Hx Coronary Artery Disease, Hx Heart Attack, Hx Hypertension, Hx Pulmonary Embolism Pulmonary Medical History: Denies: Hx Asthma, Hx Bronchitis, Hx COPD, Hx Pneumonia, Hx Sleep Apnea, Hx Tuberculosis Neurological Medical History: Reports: Hx Migraine. Denies: Hx Cerebrovascular Accident, Hx Seizures Renal/ Medical History: Denies: Hx Peritoneal Dialysis GI Medical History: Reports: Hx Gastroesophageal Reflux Disease. Denies: Hx Hiatal Hernia, Hx Ulcer Musculoskeletal Medical History: Denies Hx Arthritis, Denies Hx Fibromyalgia Psychiatric Medical History: Reports: Hx Post Traumatic Stress Disorder - minor 2005 post head injury Denies: Hx Bipolar Disorder, Hx Depression, Hx Schizophrenia Traumatic Medical History: Reports: Hx Fractures - fingers Infectious Medical History: Denies: Hx HIV Past Surgical History: Reports: Hx Section - 2. Denies: Hx Hysterectom y, Hx Pacemaker - Immunizations Hx Diphtheria, Pertussis, Tetanus Vaccination: Yes Vertical Provider Document - CONSTITUTIONAL Agree With Documented VS: Yes Exam Limitations: No Limitations General Appearance: Mild Distress - INFECTION CONTROL TRAVEL OUTSIDE OF THE [place] IN LAST 30 DAYS: No - HEENT HEENT: Atraumatic, Normal ENT Exam, Normocephalic, PERRLA Notes: Bilateral photophobia - NECK Neck: Normal Inspection, Supple, Thyroid Normal - RESPIRATORY Respiratory: Breath Sounds Normal, No Respiratory Distress, Chest Non-Tender - CARDIOVASCULAR Cardiovascular: Regular Rate, Regular Rhythm, No Murmur - NEURO Level of Consciousness: Awake, Alert, Appropriate Motor/Sensory: No Motor Deficit, No Sensory Deficit - DERM Integumentary: Warm, Dry, No Rash Course - Re-evaluation Re-evalutation: 05/27/20 20:11 Patient is resting comfortably states her headache has resolved. Counseled to continue with her home medications. Outpatient follow-up with her primary care physician as needed. Patient was given strict return to the emergency room guidelines. Return for any new or worsening symptoms. All questions were answered. Patient verbalized understanding and agrees with plan of care. - Vital Signs Vital signs: Temp Pulse Resp BP Pulse Ox 98.7 F 73 18 140/85 H 99 05/27/20 17:34 05/27/20 17:34 05/27/20 17:34 05/27/20 17:34 05/27/20 17:34 - Laboratory Results Critical Laboratory Results Reviewed: No Critical Results - Radiology Results Critical Radiology Results Reviewed: No Critical Results Discharge - Discharge Clinical Impression: Migraine headache without aura Qualifiers: Status migrainosus presence: without status migrainosus Intractability: not intractable Qualified Code(s): G43.009 - Migraine without aura, not intractable, without status migrainosus Condition: Stable Disposition: HOME, SELF-CARE Instructions: Migraine Headache ([facility]) Additional Instructions: You have been seen in the Emergency Department (ED) for a headache. Please continue with your home medications as needed for symptoms, As we have discussed, please follow up with your primary care doctor as soon as possible regarding today's ED visit and your headache symptoms. Call your doctor or return to the ED if you have a worsening headache, sudden and severe headache, confusion, slurred speech, facial droop, weakness or numbness in any arm or leg, extreme fatigue, or other symptoms that concern you. Forms: Return to Work Referrals: KARLA RAUSCH MD [Primary Care Provider] - Follow up as needed
== END 2020-05-27 20:15 | disposition home or self-care (01) ==
LOC: ER 16:20
DX: G43.009 Migraine without aura, not intractable, without status migrainosus (principal); Z79.891 Long term (current) use of opiate analgesic
CPT/HCPCS: 99284; 96372; J1885; J2765